=== PATIENT | male | born 1955 | race Hispanic/Latino ===

== ENCOUNTER → 2021-03-31 | Outpatient (CLI) | payer OTHER | END | disposition home or self-care (01) | LOC: RAH 08:12 | PROVIDERS: ATTEND Internal Medicine | DX: M25.511 Pain in right shoulder (principal) | CPT/HCPCS: 73030 ==

== ENCOUNTER 2021-10-01 06:38 | Observation (INO) | payer OTHER ==
[2021-09-29 14:55] LABS: BASOPHILS % (AUTO) 0.9 % (0.0-5.0); EOSINOPHILS % (AUTO) 1.8 % (0.0-8.0); HEMATOCRIT 36.6 % (42-54); LYMPHOCYTES % (AUTO) 36.1 % (21.0-51.0); MEAN CORPUSCULAR HGB CONC 34.2 g/dL (32.0-36.0); MONOCYTES % (AUTO) 8.5 % (3.0-13.0); NEUTROPHILS % (AUTO) 52.3 % (40.0-77.0); PLATELET COUNT (AUTO) 222 K/uL (130-400); RED BLOOD CELL COUNT(AUTO) 4.16 MIL/uL (4.50-6.20); RED CELL DISTRIBUTION WIDTH 12.6 % (11.0-15.5); WHITE BLOOD COUNT (AUTO) 5.6 K/uL (4.8-10.8)
[2021-09-29 15:04] LABS: APPEARANCE,URINE Clear (CLEAR); BILIRUBIN,URINE Negative (NEGATIVE); COLOR,URINE Yellow (YELLOW); GLUCOSE, URINE (UA) Negative (NEGATIVE); KETONES,URINE Negative (NEGATIVE); LEUKOCYTE ESTERASE ,URINE Negative (NEGATIVE); NITRATE,URINE Negative (NEGATIVE); OCCULT BLOOD,URINE Negative (NEGATIVE); PH,URINE 7.5 (5.0-8.0); PROTEIN,URINE Negative (NEGATIVE); UROBILINOGEN,URINE 0.2 mg/dL (0.2-1.0)
[2021-09-29 15:07] LABS: INR 1.04 (0.85-1.15); PROTHROMBIN TIME 11.3 SEC (9.6-11.6)
[2021-09-29 15:13] LABS: CREATININE 1.3 mg/dL (0.5-1.5); POTASSIUM 4.4 mmol/L (3.5-5.1)
[2021-09-30 11:28] VITALS: BP 142/83
[2021-10-01] VITALS (21 sets, daily range): BP systolic 109–151; BP diastolic 42–87
[~2021-10-01] VITALS: Ht 175.3 cm; Wt 88.0 kg
[~2021-10-01 06:38] MED LIST: LATA7.5D OP
[2021-10-01] MEDS ORDERED: LACTATED RINGERS 1000ML 1,000 ML IV ONE (08:17)
[2021-10-01] MEDS ORDERED: LIDOCAINE PF 100MG/5ML (2%) SYRINGE 5ML ONE ×2 (08:27→12:24)
[2021-10-01] MEDS ORDERED: SUCCINYLCHOLINE CHLORIDE 20 MG/ML 10 ML VIAL ONE (08:27)
[2021-10-01] MEDS ORDERED: PROPOFOL 10 MG/ML 20ML VIAL IV ONE (08:28)
[2021-10-01] MEDS ORDERED: ROCURONIUM 10MG/1ML SYR 10 MG/ML ML ONE (08:29)
[2021-10-01] MEDS ORDERED: FENTANYL CITRATE PF 50 MCG/1 ML 2ML VIAL ONE ×2 (08:29→12:26)
[2021-10-01] MEDS: CEFAZOLIN SODIUM 1 GM VIAL IVP ONE ×2 (08:31→10:21)
[2021-10-01] MEDS ORDERED: ROPIVACAINE 0.5% 5MG/ML 30ML IJ ONE (08:32)
[2021-10-01] MEDS ORDERED: TRANEXAMIC ACID 1000MG/10ML ONE ×2 (10:01→12:06)
[2021-10-01] MEDS ORDERED: CEFAZOLIN SODIUM 1 GM VIAL ONE (10:01)
[2021-10-01] MEDS ORDERED: HYDRALAZINE 20MG/ML VIAL ONE (11:09)
[2021-10-01] MEDS ORDERED: MEPERIDINE-PF 25 MG/ML SYG ONE (11:33)
[2021-10-01] MEDS ORDERED: ESMOLOL HCL 10 MG/ML 10 ML VIAL ONE (12:02)
[2021-10-01] MEDS ORDERED: NEOSTIGMINE 5MG/5ML SYR IV ONE (12:04)
[2021-10-01] MEDS ORDERED: KETOROLAC 30MG VIAL (30MG/ML) ONE (12:04)
[2021-10-01] MEDS ORDERED: GLYCOPYRROLATE 1 MG/5 ML SYRINGE ONE (12:04)
[2021-10-01] MEDS ORDERED: ONDANSETRON 4MG INJ ONE (12:05)
[2021-10-01] MEDS ORDERED: KCL 20 MEQ ERTAB PO PRN (12:30)
[2021-10-01] MEDS ORDERED: OXYCODONE HCL 5 MG TAB PO PRN (12:30)
[2021-10-01] MEDS ORDERED: POTASSIUM CHLORIDE 20MEQ/100ML 100 ML IV PRN (12:30)
[2021-10-01] MEDS ORDERED: FERROUS FUMARATE 324 MG TABLET PO PRN (12:30)
[2021-10-01] MEDS ORDERED: POTASSIUM CHLORIDE 10% ELIXIR 20 MEQ/15 ML UDCUP PO PRN (12:30)
[2021-10-01] MEDS ORDERED: LIDOCAINE HCL-MPF 1% 2ML VIAL IV PRN (12:30)
[2021-10-01] MEDS ORDERED: CALCIUM CARB 500MG PO PRN (12:30)
[2021-10-01] MEDS: 0.9%NACL 1000ML 1,000 ML IV SCH ×2 (12:30→22:43)
[2021-10-01] MEDS: ACETAMINOPHEN 500 MG TABLET PO SCH ×2 (12:30→20:17)
[2021-10-01] MEDS ORDERED: DiphenhydrAMINE HCL 50 MG/ML VIAL IVP PRN (12:30)
[2021-10-01] MEDS ORDERED: ONDANSETRON 4MG INJ IVP PRN (12:30)
[2021-10-01] MEDS ORDERED: TRAMADOL HCL 50 MG TABLET PO PRN (12:30)
[2021-10-01] MEDS ORDERED: TEMAZEPAM 15 MG CAPSULE PO PRN (12:30)
[2021-10-01] MEDS: OXYCODONE HCL 5 MG TAB PO PRN ×2 (15:28→23:45)
[2021-10-01] MEDS: CEFAZOLIN SODIUM 1 GM VIAL IVP SCH (18:52)
[2021-10-01] MEDS: ASPIRIN 81 MG EC TAB PO SCH (20:16)
[2021-10-01] MEDS: CELECOXIB 200 MG CAP PO SCH (20:17)
[2021-10-01] MEDS: KETOROLAC 15MG/ML VIAL (15MG/ML) IV PRN (20:17)
[2021-10-01] MEDS: FAMOTIDINE 20MG TAB PO SCH (20:17)
[2021-10-01] MEDS: PREGABALIN 25 MG CAP PO SCH (20:17)
[2021-10-02] MEDS: CEFAZOLIN SODIUM 1 GM VIAL IVP SCH (01:24)
[2021-10-02] MEDS: KETOROLAC 15MG/ML VIAL (15MG/ML) IV PRN (04:00)
[2021-10-02 04:02] VITALS: BP 127/78
[2021-10-02] MEDS: ACETAMINOPHEN 500 MG TABLET PO SCH ×3 (04:03→19:42)
[2021-10-02 04:47] LABS: HEMATOCRIT 31.9 % (42-54); MEAN CORPUSCULAR HEMOGLOBIN 29.6 pg (27.0-33.0); MEAN CORPUSCULAR HGB CONC 33.5 g/dL (32.0-36.0); MEAN CORPUSCULAR VOLUME 88.4 fL (79-99); RED BLOOD CELL COUNT(AUTO) 3.61 MIL/uL (4.50-6.20); RED CELL DISTRIBUTION WIDTH 12.7 % (11.0-15.5); WHITE BLOOD COUNT (AUTO) 8.5 K/uL (4.8-10.8)
[2021-10-02 05:03] LABS: POTASSIUM 3.8 mmol/L (3.5-5.1)
[2021-10-02 08:14] VITALS: BP 139/74
[2021-10-02] MEDS: TAMSULOSIN HCL 0.4 MG CAP.ER.24H PO SCH (08:28)
[2021-10-02] MEDS: 0.9%NACL 1000ML 1,000 ML IV SCH (08:30)
[2021-10-02] MEDS: PREGABALIN 25 MG CAP PO SCH ×2 (08:55→19:42)
[2021-10-02] MEDS: ASPIRIN 81 MG EC TAB PO SCH ×2 (08:55→19:42)
[2021-10-02] MEDS: CELECOXIB 200 MG CAP PO SCH ×2 (08:55→19:42)
[2021-10-02] MEDS: POLYETHYLENE GLYCOL 3350 17 GM POWD.PACK PO SCH (08:55)
[2021-10-02] MEDS: FAMOTIDINE 20MG TAB PO SCH ×2 (08:55→19:42)
[2021-10-02] MEDS: OXYCODONE HCL 5 MG TAB PO PRN ×3 (09:01→19:42)
[2021-10-02] MEDS: LATANOPROST 2.5 ML DROPS OP SCH ×2 (09:23→19:43)
[2021-10-02 11:03] VITALS: BP 136/72
[2021-10-02 16:13] VITALS: BP 130/69
[2021-10-02 19:15] VITALS: BP 131/72
[2021-10-02 23:40] VITALS: BP 120/68
[2021-10-03] MEDS: KETOROLAC 15MG/ML VIAL (15MG/ML) IV PRN ×2 (01:35→08:55)
[2021-10-03 04:05] VITALS: BP 128/66
[2021-10-03] MEDS: ACETAMINOPHEN 500 MG TABLET PO SCH (04:06)
[2021-10-03] MEDS: OXYCODONE HCL 5 MG TAB PO PRN ×2 (06:34→11:12)
[2021-10-03 08:02] VITALS: BP_SYST 135; BP_SYST 145; BP_DIAS 59; BP_DIAS 79
[2021-10-03] MEDS ORDERED: HYDR-4060 PO (08:34)
[2021-10-03] MEDS ORDERED: AEC81 PO (08:34)
[2021-10-03] MEDS: FAMOTIDINE 20MG TAB PO SCH (08:54)
[2021-10-03] MEDS: ASPIRIN 81 MG EC TAB PO SCH (08:54)
[2021-10-03] MEDS: PREGABALIN 25 MG CAP PO SCH (08:54)
[2021-10-03] MEDS: CELECOXIB 200 MG CAP PO SCH (08:54)
[2021-10-03] MEDS: POLYETHYLENE GLYCOL 3350 17 GM POWD.PACK PO SCH (08:54)
[2021-10-03] MEDS: LATANOPROST 2.5 ML DROPS OP SCH (08:55)
[2021-10-03] MEDS: TAMSULOSIN HCL 0.4 MG CAP.ER.24H PO SCH (08:55)
[2021-10-04] MEDS ORDERED: BISACODYL 10 MG SUPP.RECT RC PRN (12:30)
== END 2021-10-03 12:38 | disposition home health service (06) ==
LOC: DAH 06:38 → DAHIP 06:39 → DAH 06:39 → EDSTATUS 13:00 → 4AH 14:03
PROVIDERS: ADMIT Orthopaedic Surgery; ATTEND Orthopaedic Surgery
DX: M17.12 Unilateral primary osteoarthritis, left knee (principal); Z20.822 Contact with and (suspected) exposure to COVID-19; G89.29 Other chronic pain; M25.562 Pain in left knee; M17.0 Bilateral primary osteoarthritis of knee; I10 Essential (primary) hypertension; E78.5 Hyperlipidemia, unspecified; H40.9 Unspecified glaucoma; Z79.899 Other long term (current) drug therapy; Z98.890 Other specified postprocedural states
CPT/HCPCS: 27447; 36415 ×2; 64447; 76942; 80048 ×2; 81003; 85025; 85027; 85610; 87088; 87635; 87641; 96374; 96375; 96376; 97039 ×3; 97116 ×3; 97161; 97530 ×3; A4213; A4215; A4216; A4221; A4222; A4223 ×2; A4600; A4649 ×5; A4663; A4930 ×2; A5120; A9272; C1776; C9803; G0378 ×45; J0330; J0360; J0690 ×4; J1885 ×5; J2001 ×2; J2175; J2405; J2704; J2710; J2795; J3010 ×2; J3490 ×4; J7120 ×2

== ENCOUNTER 2022-05-21 07:45 | Day surgery (SDC) | payer OTHER ==
[2022-05-19 10:03] LABS: BASOPHILS % (AUTO) 1.1 % (0.0-5.0); EOSINOPHILS % (AUTO) 1.7 % (0.0-8.0); HEMATOCRIT 40.2 % (42-54); LYMPHOCYTES % (AUTO) 29.3 % (21.0-51.0); MEAN CORPUSCULAR HEMOGLOBIN 29.3 pg (27.0-33.0); MEAN CORPUSCULAR HGB CONC 32.8 g/dL (32.0-36.0); MEAN CORPUSCULAR VOLUME 89.1 fL (79-99); MONOCYTES % (AUTO) 6.8 % (3.0-13.0); NEUTROPHILS % (AUTO) 60.5 % (40.0-77.0); PLATELET COUNT (AUTO) 225 K/uL (130-400); RED BLOOD CELL COUNT(AUTO) 4.51 MIL/uL (4.50-6.20); RED CELL DISTRIBUTION WIDTH 12.9 % (11.0-15.5); WHITE BLOOD COUNT (AUTO) 5.3 K/uL (4.8-10.8)
[2022-05-19 10:23] LABS: POTASSIUM 4.7 mmol/L (3.5-5.1)
[2022-05-20 13:11] VITALS: BP 151/84
[~2022-05-21] VITALS: Ht 175.3 cm; Wt 87.5 kg
[2022-05-21] VITALS (16 sets, daily range): BP systolic 122–144; BP diastolic 72–87
[2022-05-21] MEDS ORDERED: LACTATED RINGERS 1000ML 1,000 ML IV ONE (08:28)
[2022-05-21] MEDS: CEFAZOLIN SODIUM 1 GM VIAL IVP SCH ×2 (08:55→10:50)
[2022-05-21] MEDS ORDERED: ONDANSETRON 4MG INJ ONE (09:05)
[2022-05-21] MEDS ORDERED: GLYCOPYRROLATE 1 MG/5 ML SYRINGE ONE (09:05)
[2022-05-21] MEDS ORDERED: DEXAMETHASONE SOD PHOSPHATE 10MG/ML 1ML VIAL ONE (09:05)
[2022-05-21] MEDS ORDERED: SUCCINYLCHOLINE 200MG/10ML SYR ONE (09:05)
[2022-05-21] MEDS ORDERED: SUCCINYLCHOLINE CHLORIDE 20 MG/ML 10 ML VIAL ONE (09:05)
[2022-05-21] MEDS ORDERED: NEOSTIGMINE 5MG/5ML SYR IV ONE ×2 (09:06→12:05)
[2022-05-21] MEDS ORDERED: FENTANYL CITRATE PF 50 MCG/1 ML 2ML VIAL ONE (09:06)
[2022-05-21] MEDS ORDERED: PROPOFOL 10 MG/ML 20ML VIAL IV ONE (09:06)
[2022-05-21] MEDS ORDERED: MIDAZOLAM HCL 1 MG/ML 2ML VIAL ONE (09:06)
[2022-05-21] MEDS ORDERED: ROCURONIUM 10MG/1ML SYR 10 MG/ML ML ONE (09:06)
[2022-05-21] MEDS ORDERED: ROPIVACAINE 0.5% 5MG/ML 30ML IJ ONE (09:11)
[2022-05-21] MEDS ORDERED: EPINEPHRINE 1 MG/ML 30ML VIAL IJ ONE (09:46)
[2022-05-21] MEDS ORDERED: HYDR-4060 PO (12:19)
[2022-05-21] MEDS ORDERED: IBUP-2070 PO (12:19)
[2022-05-21] MEDS ORDERED: CEPH500B PO (12:19)
== END 2022-05-21 14:10 | disposition home or self-care (01) ==
LOC: DAH 07:45
PROVIDERS: ATTEND Orthopaedic Surgery
DX: M19.011 Primary osteoarthritis, right shoulder (principal); M75.21 Bicipital tendinitis, right shoulder; M75.51 Bursitis of right shoulder; M65.811 Other synovitis and tenosynovitis, right shoulder; M24.111 Other articular cartilage disorders, right shoulder; M94.211 Chondromalacia, right shoulder; M75.41 Impingement syndrome of right shoulder; I10 Essential (primary) hypertension; E78.5 Hyperlipidemia, unspecified; Z82.49 Family history of ischemic heart disease and other diseases of the circulatory system; Z83.3 Family history of diabetes mellitus; Z98.890 Other specified postprocedural states
CPT/HCPCS: 80048; 85025; 87426; 36415; 93005; 29822; 64415; 29826; 29824; 76942; J7120 ×2; A4565; J3010; J0690; J0330 ×2; J3490; J1100; J2710 ×2; J0171; J2250; J2704; J2405; J2795; A6204; G0168; A4649 ×2; A4930 ×2; A5120; A4215; A4223; A4222; A4221; A4663; A4600